=== PATIENT | male | born 2005 | race Caucasian/White ===

== ENCOUNTER 2024-04-09 06:15 | Emergency (ER) | payer OTHER, BC ==
[2024-04-09] MEDS: Lidocaine 1% 10 ML MDV INJECT ONE (07:24)
== END 2024-04-09 08:32 | disposition home or self-care (01) ==
LOC: JD.ED 06:15
DX: S51.812A Laceration without foreign body of left forearm, initial encounter (principal); F17.210 Nicotine dependence, cigarettes, uncomplicated; Z91.018 Allergy to other foods; Z79.899 Other long term (current) drug therapy; Z86.16 Personal history of COVID-19; W26.8XXA Contact with other sharp object(s), not elsewhere classified, initial encounter
CPT/HCPCS: 12002; 99282; J3490